=== PATIENT | male | born 2000 | race Two or more races ===

== ENCOUNTER 2019-05-22 15:39 | Emergency (ER) | payer SELFPAY ==
[~2019-05-22] VITALS: Ht 180.3 cm; Wt 120.2 kg
[2019-05-22 15:44] VITALS: BP 128/54
== END 2019-05-22 16:48 | disposition left against medical advice (07) ==
LOC: ER 15:39
DX: M79.674 Pain in right toe(s) (principal); Z53.21 Procedure and treatment not carried out due to patient leaving prior to being seen by health care provider